=== PATIENT | male | born 1950 | race Two or more races ===

== ENCOUNTER 2018-05-24 19:40 | Emergency (ER) | payer OTHER ==
[~2018-05-24] VITALS: Ht 157.5 cm; Wt 70.3 kg
[2018-05-24] MEDS ORDERED: ELTROXIN (19:48)
[2018-05-24] MEDS ORDERED: ATORVASTATIN CA20 MG (19:48)
[2018-05-24] MEDS ORDERED: CALCIUM500 M1 (19:48)
[2018-05-24] MEDS ORDERED: PROLIA (19:48)
== END 2018-05-24 22:46 | disposition home or self-care (01) ==
LOC: ER 19:40
DX: S82.031A Displaced transverse fracture of right patella, initial encounter for closed fracture (principal); W18.39XA Other fall on same level, initial encounter; Y93.89 Activity, other specified; Y92.098 Other place in other non-institutional residence as the place of occurrence of the external cause; Y99.8 Other external cause status